=== PATIENT | male | born 1980 | race Caucasian/White ===

== ENCOUNTER 2017-07-03 01:33 | Emergency (ER) | payer MEDICAID ==
[2017-07-03 03:28] LABS: AMPHETAMINE QUAL UR POSITIVE (NEG <=1000)
[2017-07-03 04:14] VITALS: BP 136/76
== END 2017-07-03 04:11 | disposition home or self-care (01) ==
LOC: ED 01:33
PROVIDERS: Emergency Medicine Emergency Medical Services
DX: B35.3 Tinea pedis (principal); F15.10 Other stimulant abuse, uncomplicated; J45.909 Unspecified asthma, uncomplicated; I10 Essential (primary) hypertension; Z88.1 Allergy status to other antibiotic agents

== ENCOUNTER 2019-06-29 19:04 | Emergency (ER) | payer OTHER ==
[~2019-06-29] VITALS: Ht 172.7 cm; Wt 107.5 kg
[2019-06-29 19:14] VITALS: Ht 172.7 cm; Wt 107.5 kg
[2019-06-29 22:12] VITALS: BP 127/85
== END 2019-06-29 22:12 | disposition home or self-care (01) ==
LOC: ED 19:04
DX: L03.031 Cellulitis of right toe (principal); I10 Essential (primary) hypertension; J45.909 Unspecified asthma, uncomplicated; Z88.1 Allergy status to other antibiotic agents
CPT/HCPCS: J1885